=== PATIENT | male | born 1950 | race Caucasian/White ===

== ENCOUNTER 2022-09-27 23:44 | Inpatient (IN) | payer MEDICARE, BC, SELFPAY ==
--- NOTE | 2022-09-27 | ECG_ITS ---
Test Reason : hx of ventricular tachycardia, r/o qtc prolongatio Blood Pressure : / mmHG Vent. Rate : 076 BPM Atrial Rate : 076 BPM P-R Int : 192 ms QRS Dur : 116 ms QT Int : 442 ms P-R-T Axes : 018 -45 034 degrees QTc Int : 497 ms Normal sinus rhythm Left anterior fascicular block Prolonged QT Abnormal ECG No previous ECGs available Referred By: Liyah Cano Electronically Signed By:Jose Montilla
--- NOTE | ~2022-09-27 | MR_ITS ---
EXAMINATION: MR BRAIN WITHOUT CONTRAST CLINICAL INFORMATION: Rule out Wernicke's Korsakoff's. COMPARISON: None available. TECHNIQUE: Multiplanar, multisequence imaging of the brain was performed without intravenous contrast. FINDINGS: There is no acute infarction, mass, or hemorrhage. No extra-axial collection is seen.the ventricles, sulci, and basilar cisterns are normal in size and configuration. Mild to moderate degree of brain parenchymal volume loss is noted with commensurate prominence of the ventricles and sulci. Mild nonspecific foci of T2/FLAIR hyperintensity are seen within the cerebral white matter. There is no abnormal T2 signal involving the dorsomedial thalami, tectal plate, periaqueductal region, or around the third ventricle as would be typical imaging manifestations of Wernicke's encephalopathy. The flow voids of the major intracranial arteries appear intact. The bones and extracranial soft tissues are unremarkable. MR/MR head/brain wo con IMPRESSION: No acute infarct, mass lesion, intracranial hemorrhage, or evidence of hydrocephalus. No imaging findings of Wernicke's encephalopathy.
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
[2022-09-28] MEDS: Melatonin 3 MG TABLET 6 MG PO ×2 (01:06→20:10)
[2022-09-28] MEDS: LORazepam 0.5 MG TABLET PO ×4 (01:06→22:03)
--- NOTE | 2022-09-28 01:43 | PC.ADMIT ---
Admitted these 71 yrs. old male patient at 23:55h accompanied by ambulance staff and security w/ presenting problem of suicidal ideation with a plan to overdose on his medications.He was placed in the [facility] unit at [facility] but during his stay there he experienced some health related concerns and had to be moved to the medical floor on [place] 2. They were looking to have Rolando sent back to the [facility] unit to finish his treatment and adjust his meds. Upon admission, pt. is oriented to the unit, room, staff and room mate. Pt. is alert and oriented x3, forgetful and confused at times. Pt. signed the CV and other papers for release of information. Skin is good w/ a small old bruise to sung lower arms. No c/o SOB. Abdomen soft and non tender w/ + bowel sounds and no edema noted. Pt is pleasant on approached and cooperative w/ admission process. Pt. denies SI/HI/AVH/pain at this time.Pt. has long history of depression and Alcohol use and pt said he did not drink alcohol for 25 days. Pt. reports his past year. Pt has hx of Anxiety, Afib., HTN, Hypercholesterol. Liyah Cano notified w/ admission and made some admision orders. Pt is placed on !:1 at [facility] d/t constant pacing and flight risk according to the Nurse to Nurse report. Pt. given Ativan 0.5 mg and Melatonin 6 mg. for sleep and pt. is med compliant. We'll continue to monitor patient.
[2022-09-28] MEDS: traZODone HCL 25 MG HALFTAB PO ×2 (02:25→04:14)
[2022-09-28 02:38] VITALS: BMI 22.6
[2022-09-28 02:40] VITALS: BP 138/75; PULSE 83; RESP 18; TEMP 36.2; O2SAT 97
[2022-09-28] MEDS: hydrOXYzine HCL 25 MG TABLET PO (04:14)
[2022-09-28 07:00] VITALS: BMI 22.4
[2022-09-28 07:45] VITALS: BP 142/82; PULSE 112; RESP 20; O2SAT 98
[2022-09-28 08:00] LABS: MANUAL DIFF FLAG NO
[2022-09-28 08:08] LABS: Basophils Percent Auto 0.8 % (0-2); Eosinophils Absolute Auto 0.2 X10*3/uL (0.0-0.4); Eosinophils Percent Auto 3.2 % (0-4); Hematocrit 41.4 % (42.0-52.0); Hemoglobin 14.1 g/dl (14.0-18.0); Imm Gran Abs Auto 0.01 X10*3/uL (0.00-0.03); Imm Gran Pct Auto 0.2 % (0.0-0.4); Lymphocytes Absolute Auto 1.7 X10*3/uL (1.2-4.9); Lymphocytes Percent Auto 34.9 % (20-40); Mean Corpuscular HGB Conc 34.1 g/dl (31.0-36.0); Mean Corpuscular Hemoglobin 31.1 pg (27.0-33.0); Mean Corpuscular Volume 91.2 fL (80.0-98.0); Mean Platelet Volume 10.9 fL (9.4-12.4); Monocytes Absolute Auto 0.5 X10*3/uL (0.1-1.2); Monocytes Percent Auto 10.2 % (2-11); Neutrophils Absolute Auto 2.5 x10*3/uL (2.0-8.3); Neutrophils Percent Auto 50.7 % (45-73); Platelet Count 235 X10*3/uL (160-400); Red Blood Count 4.54 X10*6/uL (4.60-5.80); Red Cell Distribution Width 12.5 % (11.0-16.0)
[2022-09-28] MEDS: VerapamiL HCL SR 180 MG TABLET.ER 360 MG PO (08:17)
[2022-09-28] MEDS: Apixaban 5 MG TABLET PO ×2 (08:20→20:10)
[2022-09-28] MEDS: Metoprolol Succinate ER 25 MG TAB.ER.24H PO (08:20)
[2022-09-28] MEDS: Atorvastatin Calcium 40 MG TABLET PO (08:21)
[2022-09-28 08:30] LABS: Alanine Aminotransferase 25 U/L (0-40); Albumin Level 4.2 g/dL (3.5-5.0); Alkaline Phosphatase 28 U/L (39-117); Anion Gap 16 (12-20); Aspartate Amino Transferase 30 U/L (5-37); Blood Urea Nitrogen 15 mg/dL (9-16); Calcium 9.5 mg/dL (8.4-10.2); Carbon Dioxide 20 mmol/L (22-29); Chloride 113 mmol/L (96-108); Cholesterol 155 mg/dL; Estimated Glomerular Filt Rate 49; Glucose Fasting 97 mg/dL (60-99); HDL Cholesterol 41 mg/dL; Iron 67 mcg/dL (45-160); LDL Cholesterol Calculated 90 mg/dl; Percent Iron Saturation 16 % (15-50); Potassium 3.8 mmol/L (3.3-5.1); Sodium 145 mmol/L (135-145); Total Iron Binding Capacity 408 mcg/dL (228-428); Total Protein 6.4 g/dL (6.5-8.0); Triglycerides 121 mg/dL; Unsaturated Iron Binding 341 ug/dL
[2022-09-28 09:08] LABS: Estimated Average Glucose 100 mg/dL; Hemoglobin A1c % 5.1 %
[2022-09-28 09:32] LABS: Folate 11.7 ng/mL (> or = 4.0); Thyroid Stimulating Hormone 0.15 uIU/mL (0.32-4.0); Vitamin B12 474 pg/mL (200-900)
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
[2022-09-28 13:16] LABS: Free T4 (Free Thyroxine) 1.12 ng/dL (0.71-1.85)
[2022-09-28] MEDS: Acetaminophen 325 MG TABLET 650 MG PO ×2 (14:48→21:38)
[2022-09-28 19:35] VITALS: BP 140/62; PULSE 79; RESP 18; TEMP 36.2; O2SAT 98
[2022-09-29] MEDS: LORazepam 0.5 MG TABLET PO ×2 (06:39→22:12)
[2022-09-29] MEDS: Metoprolol Succinate ER 25 MG TAB.ER.24H PO (08:57)
[2022-09-29] MEDS: VerapamiL HCL SR 180 MG TABLET.ER 360 MG PO (08:57)
[2022-09-29] MEDS: Apixaban 5 MG TABLET PO ×2 (08:57→20:18)
[2022-09-29] MEDS: Atorvastatin Calcium 40 MG TABLET PO (08:57)
[2022-09-29 09:00] VITALS: BP 144/75; PULSE 97; RESP 18; TEMP 36.1; O2SAT 100
--- NOTE | 2022-09-29 15:48 | HO.PSYCHPN ---
Subjective Subjective Date of Service: 09/29/22 Reason For Visit: Major Depressive Disorder Recurrent Episode Subjective Notes: Conditional Voluntary Interim History: The nursing staff reported the patient has been confused at times mostly in the evening. The occupational therapy reported he has been cognitively impaired and he scored 8/30 on the [place]. Today we started multivitamins, vitamin B12 and folate and I ordered the MRI to look out for for alcohol-induced dementia. On interview the patient denies new symptoms he was displeased and initially he signed a 3 day notice in the morning but then later retracted. MRI wwith no Wernicke-Kosakoff Mental Status Exam Mental Status Exam Patient Appearance: Well Grooomed and Appropriate Patient Orientation: Person and Situation Level of Consciousness: Awake and Appropriate Patient Behavior: Passive Mood Description: Calm and Depressed Affect Description: Constricted Patient Cognition Impaired: Yes Ability to Follow Directions: Good Speech Pattern: Clear Hallucinations: None Delusions: Not Present Thought Process: Distracted and Evasive Thought Content: positive for [place] and positive for Circumstantial Judgement: Poor Diagnostics Vital Signs (24Hr): Vital Signs - 24 hr 09/28/22 19:35 09/29/22 09:00 Temperature 97.2 F 96.9 F Pulse Rate 79 97 Respiratory Rate 18 18 Blood Pressure 140/62 H 144/75 H Pulse Oximetry 98 100 Oxygen Delivery Method Room Air Room Air BMI result Body Mass Index 22.4 Labs 09/28/22 07:41 09/28/22 07:41 Labs: Laboratory Results - last 48 hr 09/28/22 09/28/22 09/28/22 07:41 07:41 07:41 WBC 5.0 RBC 4.54 L Hgb 14.1 Hct 41.4 L MCV 91.2 MCH 31.1 MCHC 34.1 RDW 12.5 Plt Count 235 MPV 10.9 Immature Gran % (Auto) 0.2 Neut % (Auto) 50.7 Lymph % (Auto) 34.9 Gregory % (Auto) 10.2 Eos % (Auto) 3.2 Baso % (Auto) 0.8 Lymph # (Auto) 1.7 Gregory # (Auto) 0.5 Eos # (Auto) 0.2 Baso # (Auto) 0.0 Abs Immat Gran (auto) 0.01 Absolute Neuts (auto) 2.5 Absolute Nucleated RBC 0.000 Nucleated RBC % (auto) 0.0 Sodium 145 Potassium 3.8 Chloride 113 H Carbon Dioxide 20 L Anion Gap 16 BUN 15 Creatinine 1.42 H Estim Creat Clear Calc 51.0 Estimated GFR 49 Fasting Glucose 97 Estimat Average Glucose 100 Hemoglobin A1c % 5.1 Calcium 9.5 Iron 67 TIBC 408 % Saturation 16 Unsat Iron Binding 341 Total Bilirubin 1.0 AST 30 ALT 25 Alkaline Phosphatase 28 L Total Protein 6.4 L Albumin 4.2 Triglycerides 121 Cholesterol 155 LDL Cholesterol, Calc 90 HDL Cholesterol 41 Vitamin B12 474 Folate 11.7 TSH 0.15 L Free T4 1.12 Imaging Radiology Impressions: ITS Impressions Brain MRI 09/29/22 13:00 IMPRESSION: No acute infarct, mass lesion, intracranial hemorrhage, or evidence of hydrocephalus. No imaging findings of Wernicke's encephalopathy. Medications Medications Current Medications Acetaminophen (Acetaminophen 325 Mg Tablet) 650 mg PO Q6H PRN PRN Reason: Headache/Pain Mild Scale (1-3) Last Admin: 09/28/22 21:38 Dose: 650 mg Al Hydroxide/Mg Hydroxide (Magnesium Hydrox/Alum Hydrox 30 Ml Oral.Susp) 30 ml PO Q6H PRN PRN Reason: Heartburn/Nausea Albuterol Sulfate (Albuterol Sulfate 90 Mcg 8 Gm Inhaler) 2 puff INHALE RQ4H PRN PRN Reason: wheeze Apixaban (Apixaban 5 Mg Tablet) 5 mg PO BID [facility] Last Admin: 09/29/22 08:57 Dose: 5 mg Atorvastatin Calcium (Atorvastatin Calcium 40 Mg Tablet) 40 mg PO DAILY [facility] Last Admin: 09/29/22 08:57 Dose: 40 mg Cyanocobalamin (Cyanocobalamin (Vitamin B-12) 100 Mcg Tablet) 100 mcg PO DAILY [facility] Docusate Sodium (Docusate Sodium 100 Mg Capsule) 100 mg PO BID PRN PRN Reason: Constipation Folic Acid (Folic Acid 1 Mg Tablet) 1 mg PO DAILY [facility] Hydroxyzine HCl (Hydroxyzine Hcl 25 Mg Tablet) 25 mg PO Q6H PRN PRN Reason: Anxiety Last Admin: 09/28/22 04:14 Dose: 25 mg Lorazepam (Lorazepam 0.5 Mg Tablet) 0.5 mg PO Q6H PRN PRN Reason: anxiety Magnesium Hydroxide (Milk Of Magnesia 30 Ml Oral.Susp) 30 ml PO DAILY PRN PRN Reason: Constipation Melatonin (Melatonin 3 Mg Tablet) 6 mg PO BEDTIME PRN PRN Reason: Insomnia Last Admin: 09/28/22 20:10 Dose: 6 mg Metoprolol Succinate (Metoprolol Succinate Er 25 Mg Tab.Er.24h) 25 mg PO DAILY [facility]; Protocol Last Admin: 09/29/22 08:57 Dose: 25 mg Mirtazapine (Mirtazapine 7.5 Mg Tablet) 7.5 mg PO BEDTIME [facility] Multivitamins/Vitamin C (Multivitamin Tablet) 1 tab PO BEDTIME [facility] Olanzapine (Olanzapine 5 Mg Tablet) 5 mg PO Q4H PRN PRN Reason: Psychosis Trazodone HCl (Trazodone Hcl 25 Mg Halftab) 25 mg PO BEDTIME MRX1 PRN PRN Reason: Insomnia Last Admin: 09/28/22 04:14 Dose: 25 mg Verapamil HCl (Verapamil Hcl Sr 180 Mg Tablet.Er) 360 mg PO DAILY [facility]; Protocol Last Admin: 09/29/22 08:57 Dose: 360 mg Allergies Allergies Allergy/AdvReac Type Severity Reaction Status Date / Time No Known Allergies Allergy Verified 09/27/22 22:37 Assessment & Plan Assessment & Plan (1) Major depressive disorder: Status: Acute Code(s): F32.9 - Major depressive disorder, single episode, unspecified (2) Alcohol use disorder: Status: Acute Code(s): F10.90 - Alcohol use, unspecified, uncomplicated Plan The patient is an elderly male with a prior history of increased misuse of alcohol for the last year after that that of his , admitted initially at another hospital for suicidal ideation with a plan to overdose of prescription medications. Currently, he presents with depressive symptoms with suicidal ideation but he is able to contract for safety in the facility. Plan 1. Gather collateral information. 2. 50 minute check. 3. Regular blood work. 4. Hospitalist consult for medical clearance. 5. Remeron 7.5 mg p.o. q.h.s. to target depression. 6. We will consider the use of naltrexone if he presents with cravings. 7. Family meeting to gather more information 8. Vitamin B12, folate and multivitamins today. 9. MRI within normal limits Reason for contiued inpatient stay Substantial Risk for: inability to function, rapid decompensation and med/psych decompensation Time Spent With Patient Time: Total time managing care of this patient today __20__ minutes.
[2022-09-29 18:00] VITALS: BP 141/66; PULSE 72; RESP 18; TEMP 36.2; O2SAT 98
[2022-09-29] MEDS: Multivitamin TABLET 1 TAB PO (20:18)
[2022-09-29] MEDS: Mirtazapine 7.5 MG TABLET PO (20:18)
[2022-09-29] MEDS: Melatonin 3 MG TABLET 6 MG PO (21:13)
[2022-09-29] MEDS: hydrOXYzine HCL 25 MG TABLET PO (21:13)
[2022-09-29] MEDS: traZODone HCL 25 MG HALFTAB PO ×2 (22:13→23:22)
[2022-09-30 06:28] LABS: MANUAL DIFF FLAG NO
[2022-09-30 06:33] LABS: Basophils Percent Auto 0.7 % (0-2); Eosinophils Absolute Auto 0.2 X10*3/uL (0.0-0.4); Hematocrit 38.5 % (42.0-52.0); Hemoglobin 12.9 g/dl (14.0-18.0); Imm Gran Abs Auto 0.02 X10*3/uL (0.00-0.03); Imm Gran Pct Auto 0.4 % (0.0-0.4); Lymphocytes Absolute Auto 1.3 X10*3/uL (1.2-4.9); Lymphocytes Percent Auto 27.9 % (20-40); Mean Corpuscular HGB Conc 33.5 g/dl (31.0-36.0); Mean Corpuscular Hemoglobin 30.2 pg (27.0-33.0); Mean Corpuscular Volume 90.2 fL (80.0-98.0); Mean Platelet Volume 10.9 fL (9.4-12.4); Monocytes Absolute Auto 0.5 X10*3/uL (0.1-1.2); Monocytes Percent Auto 9.9 % (2-11); Neutrophils Absolute Auto 2.6 x10*3/uL (2.0-8.3); Neutrophils Percent Auto 57.1 % (45-73); Platelet Count 204 X10*3/uL (160-400); Red Blood Count 4.27 X10*6/uL (4.60-5.80); Red Cell Distribution Width 12.4 % (11.0-16.0); White Blood Count 4.6 X10*3/uL (4.8-10.8)
[2022-09-30 06:44] LABS: Alanine Aminotransferase 22 U/L (0-40); Albumin Level 3.8 g/dL (3.5-5.0); Alkaline Phosphatase 29 U/L (39-117); Aspartate Amino Transferase 27 U/L (5-37); Bilirubin Direct 0.2 mg/dL (0.0-0.5); Bilirubin Total 0.8 mg/dL (0.0-1.0); Gamma Glutamyl Transpeptidase 38 U/L (11-51); Total Protein 5.8 g/dL (6.5-8.0)
[2022-09-30 08:45] VITALS: BP 136/99; PULSE 96; RESP 16; TEMP 36; O2SAT 96
[2022-09-30] MEDS: Folic Acid 1 MG TABLET PO (08:55)
[2022-09-30] MEDS: VerapamiL HCL SR 180 MG TABLET.ER 360 MG PO (08:55)
[2022-09-30] MEDS: Atorvastatin Calcium 40 MG TABLET PO (08:56)
[2022-09-30] MEDS: Apixaban 5 MG TABLET PO ×2 (08:56→20:22)
[2022-09-30] MEDS: Metoprolol Succinate ER 25 MG TAB.ER.24H PO (08:56)
[2022-09-30] MEDS: Cyanocobalamin (Vitamin B-12) 100 MCG TABLET PO (08:56)
--- NOTE | 2022-09-30 10:09 | HO.PSYCHPN ---
Subjective Subjective Date of Service: 09/30/22 Reason For Visit: Major Depressive Disorder Recurrent Episode Subjective Notes: Conditional Voluntary Interim History: The nursing staff reported the patient had been restless at night he received several PRNs and eventually he had Ativan p.r.n. at night. He slept only a few hours. On interview the patient denies new symptoms he looks anxious he was discharged as soon as possible Mental Status Exam Mental Status Exam Patient Appearance: Appropriate Patient Orientation: Person and Situation Level of Consciousness: Awake and Appropriate Patient Behavior: Guarded and Passive Mood Description: Calm Affect Description: Constricted Patient Cognition Impaired: Yes Ability to Follow Directions: Good Speech Pattern: Clear Hallucinations: None Delusions: Not Present Thought Process: Linear Thought Content: positive for [place] Judgement: Fair Diagnostics Vital Signs (24Hr): Vital Signs - 24 hr 09/29/22 18:00 Temperature 97.1 F Pulse Rate 72 Respiratory Rate 18 Blood Pressure 141/66 H Pulse Oximetry 98 Oxygen Delivery Method Room Air BMI result Body Mass Index 22.4 Labs 09/30/22 06:03 09/28/22 07:41 Labs: Laboratory Results - last 48 hr 09/28/22 09/30/22 09/30/22 07:41 06:03 06:03 WBC 4.6 L RBC 4.27 L Hgb 12.9 L Hct 38.5 L MCV 90.2 MCH 30.2 MCHC 33.5 RDW 12.4 Plt Count 204 MPV 10.9 Immature Gran % (Auto) 0.4 Neut % (Auto) 57.1 Lymph % (Auto) 27.9 Nicholas % (Auto) 9.9 Eos % (Auto) 4.0 Baso % (Auto) 0.7 Lymph # (Auto) 1.3 Nicholas # (Auto) 0.5 Eos # (Auto) 0.2 Baso # (Auto) 0.0 Abs Immat Gran (auto) 0.02 Absolute Neuts (auto) 2.6 Absolute Nucleated RBC 0.000 Nucleated RBC % (auto) 0.0 Total Bilirubin 0.8 Direct Bilirubin 0.2 GGT 38 AST 27 ALT 22 Alkaline Phosphatase 29 L Total Protein 5.8 L Albumin 3.8 Free T4 1.12 Imaging Radiology Impressions: ITS Impressions Brain MRI 09/29/22 13:00 IMPRESSION: No acute infarct, mass lesion, intracranial hemorrhage, or evidence of hydrocephalus. No imaging findings of Wernicke's encephalopathy. Medications Medications Current Medications Acetaminophen (Acetaminophen 325 Mg Tablet) 650 mg PO Q6H PRN PRN Reason: Headache/Pain Mild Scale (1-3) Last Admin: 09/28/22 21:38 Dose: 650 mg Al Hydroxide/Mg Hydroxide (Magnesium Hydrox/Alum Hydrox 30 Ml Oral.Susp) 30 ml PO Q6H PRN PRN Reason: Heartburn/Nausea Albuterol Sulfate (Albuterol Sulfate 90 Mcg 8 Gm Inhaler) 2 puff INHALE RQ4H PRN PRN Reason: wheeze Apixaban (Apixaban 5 Mg Tablet) 5 mg PO BID [facility] Last Admin: 09/30/22 08:56 Dose: 5 mg Atorvastatin Calcium (Atorvastatin Calcium 40 Mg Tablet) 40 mg PO DAILY [facility] Last Admin: 09/30/22 08:56 Dose: 40 mg Cyanocobalamin (Cyanocobalamin (Vitamin B-12) 100 Mcg Tablet) 100 mcg PO DAILY [facility] Last Admin: 09/30/22 08:56 Dose: 100 mcg Docusate Sodium (Docusate Sodium 100 Mg Capsule) 100 mg PO BID PRN PRN Reason: Constipation Folic Acid (Folic Acid 1 Mg Tablet) 1 mg PO DAILY [facility] Last Admin: 09/30/22 08:55 Dose: 1 mg Hydroxyzine HCl (Hydroxyzine Hcl 25 Mg Tablet) 25 mg PO Q6H PRN PRN Reason: Anxiety Last Admin: 09/29/22 21:13 Dose: 25 mg Lorazepam (Lorazepam 0.5 Mg Tablet) 0.5 mg PO Q6H PRN PRN Reason: anxiety Last Admin: 09/29/22 22:12 Dose: 0.5 mg Magnesium Hydroxide (Milk Of Magnesia 30 Ml Oral.Susp) 30 ml PO DAILY PRN PRN Reason: Constipation Melatonin (Melatonin 3 Mg Tablet) 6 mg PO BEDTIME PRN PRN Reason: Insomnia Last Admin: 09/29/22 21:13 Dose: 6 mg Metoprolol Succinate (Metoprolol Succinate Er 25 Mg Tab.Er.24h) 25 mg PO DAILY [facility]; Protocol Last Admin: 09/30/22 08:56 Dose: 25 mg Mirtazapine (Mirtazapine 7.5 Mg Tablet) 7.5 mg PO BEDTIME [facility] Last Admin: 09/29/22 20:18 Dose: 7.5 mg Multivitamins/Vitamin C (Multivitamin Tablet) 1 tab PO BEDTIME [facility] Last Admin: 09/29/22 20:18 Dose: 1 tab Olanzapine (Olanzapine 5 Mg Tablet) 5 mg PO Q4H PRN PRN Reason: Psychosis Trazodone HCl (Trazodone Hcl 25 Mg Halftab) 25 mg PO BEDTIME MRX1 PRN PRN Reason: Insomnia Last Admin: 09/29/22 23:22 Dose: 25 mg Verapamil HCl (Verapamil Hcl Sr 180 Mg Tablet.Er) 360 mg PO DAILY [facility]; Protocol Last Admin: 09/30/22 08:55 Dose: 360 mg Allergies Allergies Allergy/AdvReac Type Severity Reaction Status Date / Time No Known Allergies Allergy Verified 09/27/22 22:37 Assessment & Plan Assessment & Plan (1) Major depressive disorder: Status: Acute Code(s): F32.9 - Major depressive disorder, single episode, unspecified (2) Alcohol use disorder: Status: Acute Code(s): F10.90 - Alcohol use, unspecified, uncomplicated Plan The patient is an elderly male with a prior history of increased misuse of alcohol for the last year after that that of his , admitted initially at another hospital for suicidal ideation with a plan to overdose of prescription medications. Currently, he presents with depressive symptoms with suicidal ideation but he is able to contract for safety in the facility. Plan 1. Gather collateral information. 2. 50 minute check. 3. Regular blood work. 4. Hospitalist consult for medical clearance. 5. Remeron 7.5 mg p.o. q.h.s. to target depression. 6. We will consider the use of naltrexone if he presents with cravings. 7. Family meeting to gather more information 8. Vitamin B12, folate and multivitamins today. 9. MRI within normal limits Reason for contiued inpatient stay Substantial Risk for: inability to function, rapid decompensation and med/psych decompensation Time Spent With Patient Time: Total time managing care of this patient today __20__ minutes.
[2022-09-30 11:02] VITALS: BP 128/82; PULSE 92
[2022-09-30] MEDS: lisinopriL 20 MG TABLET PO (11:03)
[2022-09-30 18:48] VITALS: BP 147/67; PULSE 85; RESP 18; TEMP 36.4; O2SAT 99
[2022-09-30] MEDS: Mirtazapine 15 MG TABLET PO (20:23)
[2022-09-30] MEDS: Multivitamin TABLET 1 TAB PO (20:23)
[2022-09-30] MEDS: Acetaminophen 325 MG TABLET 650 MG PO (20:43)
[2022-10-01] MEDS: hydrOXYzine HCL 25 MG TABLET PO ×2 (01:33→23:18)
[2022-10-01] MEDS: traZODone HCL 25 MG HALFTAB PO ×2 (01:33→22:10)
[2022-10-01] MEDS: Melatonin 3 MG TABLET 6 MG PO ×2 (01:33→21:12)
[2022-10-01 09:00] VITALS: BP 124/67; PULSE 93; RESP 16; TEMP 36.6; O2SAT 98
[2022-10-01] MEDS: lisinopriL 20 MG TABLET PO (09:02)
[2022-10-01] MEDS: Folic Acid 1 MG TABLET PO (09:02)
[2022-10-01] MEDS: Atorvastatin Calcium 40 MG TABLET PO (09:02)
[2022-10-01] MEDS: Metoprolol Succinate ER 25 MG TAB.ER.24H PO (09:03)
[2022-10-01] MEDS: Apixaban 5 MG TABLET PO ×2 (09:03→20:14)
[2022-10-01] MEDS: VerapamiL HCL SR 180 MG TABLET.ER 360 MG PO (09:03)
[2022-10-01] MEDS: Cyanocobalamin (Vitamin B-12) 100 MCG TABLET PO (09:03)
[2022-10-01] MEDS: Fenofibrate 160 MG TABLET PO (10:32)
--- NOTE | 2022-10-01 12:09 | P.PNPSI_ITS ---
Subjective Subjective Date of Service: 10/01/22 Reason For Visit: Major Depressive Disorder Recurrent Episode Subjective Notes: Conditional Voluntary Interim History: The nursing staff reported the patient had a poor night sleep he needed PRNs and admit 9 he slept only for a few hours. The patient remains confused at times. On interview the patient reports that he has poor sleep and he agreed to medication changes for sleep. Mental Status Exam Mental Status Exam Patient Appearance: Well Grooomed and Appropriate Patient Orientation: Person and Situation Level of Consciousness: Awake and Appropriate Patient Behavior: Guarded and Passive Mood Description: Withdrawn Affect Description: Constricted Patient Cognition Impaired: Yes Ability to Follow Directions: Good Speech Pattern: Clear Hallucinations: None Delusions: Not Present Thought Process: Distracted Thought Content: positive for [place] Judgement: Fair Diagnostics Vital Signs (24Hr): Vital Signs - 24 hr 09/30/22 18:48 10/01/22 09:00 Temperature 97.6 F 97.8 F Pulse Rate 85 93 Respiratory Rate 18 16 Blood Pressure 147/67 H 124/67 Pulse Oximetry 99 98 Oxygen Delivery Method Room Air Room Air BMI result Body Mass Index 22.4 Labs 09/30/22 06:03 09/28/22 07:41 Labs: Laboratory Results - last 48 hr 09/30/22 09/30/22 06:03 06:03 WBC 4.6 L RBC 4.27 L Hgb 12.9 L Hct 38.5 L MCV 90.2 MCH 30.2 MCHC 33.5 RDW 12.4 Plt Count 204 MPV 10.9 Immature Gran % (Auto) 0.4 Neut % (Auto) 57.1 Lymph % (Auto) 27.9 [place] % (Auto) 9.9 Eos % (Auto) 4.0 Baso % (Auto) 0.7 Lymph # (Auto) 1.3 [place] # (Auto) 0.5 Eos # (Auto) 0.2 Baso # (Auto) 0.0 Abs Immat Gran (auto) 0.02 Absolute Neuts (auto) 2.6 Absolute Nucleated RBC 0.000 Nucleated RBC % (auto) 0.0 Total Bilirubin 0.8 Direct Bilirubin 0.2 GGT 38 AST 27 ALT 22 Alkaline Phosphatase 29 L Total Protein 5.8 L Albumin 3.8 Imaging Radiology Impressions: ITS Impressions Brain MRI 09/29/22 13:00 IMPRESSION: No acute infarct, mass lesion, intracranial hemorrhage, or evidence of hydrocephalus. No imaging findings of Wernicke's encephalopathy. Medications Medications Current Medications Acetaminophen (Acetaminophen 325 Mg Tablet) 650 mg PO Q6H PRN PRN Reason: Headache/Pain Mild Scale (1-3) Last Admin: 09/30/22 20:43 Dose: 650 mg Al Hydroxide/Mg Hydroxide (Magnesium Hydrox/Alum Hydrox 30 Ml Oral.Susp) 30 ml PO Q6H PRN PRN Reason: Heartburn/Nausea Albuterol Sulfate (Albuterol Sulfate 90 Mcg 8 Gm Inhaler) 2 puff INHALE RQ4H PRN PRN Reason: wheeze Apixaban (Apixaban 5 Mg Tablet) 5 mg PO BID [facility] Last Admin: 10/01/22 09:03 Dose: 5 mg Atorvastatin Calcium (Atorvastatin Calcium 40 Mg Tablet) 40 mg PO DAILY [facility] Last Admin: 10/01/22 09:02 Dose: 40 mg Cyanocobalamin (Cyanocobalamin (Vitamin B-12) 100 Mcg Tablet) 100 mcg PO DAILY [facility] Last Admin: 10/01/22 09:03 Dose: 100 mcg Docusate Sodium (Docusate Sodium 100 Mg Capsule) 100 mg PO BID PRN PRN Reason: Constipation Fenofibrate (Fenofibrate 160 Mg Tablet) 160 mg PO DAILY [facility] Last Admin: 10/01/22 10:32 Dose: 160 mg Folic Acid (Folic Acid 1 Mg Tablet) 1 mg PO DAILY [facility] Last Admin: 10/01/22 09:02 Dose: 1 mg Hydroxyzine HCl (Hydroxyzine Hcl 25 Mg Tablet) 25 mg PO Q6H PRN PRN Reason: Anxiety Last Admin: 10/01/22 01:33 Dose: 25 mg Lisinopril (Lisinopril 20 Mg Tablet) 20 mg PO DAILY [facility]; Protocol Last Admin: 10/01/22 09:02 Dose: 20 mg Lorazepam (Lorazepam 0.5 Mg Tablet) 0.5 mg PO Q6H PRN PRN Reason: anxiety Last Admin: 09/29/22 22:12 Dose: 0.5 mg Magnesium Hydroxide (Milk Of Magnesia 30 Ml Oral.Susp) 30 ml PO DAILY PRN PRN Reason: Constipation Melatonin (Melatonin 3 Mg Tablet) 6 mg PO BEDTIME PRN PRN Reason: Insomnia Last Admin: 10/01/22 01:33 Dose: 6 mg Metoprolol Succinate (Metoprolol Succinate Er 25 Mg Tab.Er.24h) 25 mg PO DAILY [facility]; Protocol Last Admin: 10/01/22 09:03 Dose: 25 mg Mirtazapine (Mirtazapine 15 Mg Tablet) 15 mg PO BEDTIME [facility] Last Admin: 09/30/22 20:23 Dose: 15 mg Multivitamins/Vitamin C (Multivitamin Tablet) 1 tab PO BEDTIME [facility] Last Admin: 09/30/22 20:23 Dose: 1 tab Non-Formulary Medication (Cholecalciferol (Vitamin D3)) 50,000 units PO Tony [facility] Olanzapine (Olanzapine 5 Mg Tablet) 5 mg PO Q4H PRN PRN Reason: Psychosis Trazodone HCl (Trazodone Hcl 25 Mg Halftab) 25 mg PO BEDTIME MRX1 PRN PRN Reason: Insomnia Last Admin: 10/01/22 01:33 Dose: 25 mg Verapamil HCl (Verapamil Hcl Sr 180 Mg Tablet.Er) 360 mg PO DAILY [facility]; Protocol Last Admin: 10/01/22 09:03 Dose: 360 mg Allergies Allergies Allergy/AdvReac Type Severity Reaction Status Date / Time No Known Allergies Allergy Verified 09/27/22 22:37 Assessment & Plan Assessment & Plan (1) Major depressive disorder: Status: Acute Code(s): F32.9 - Major depressive disorder, single episode, unspecified (2) Alcohol use disorder: Status: Acute Code(s): F10.90 - Alcohol use, unspecified, uncomplicated Plan The patient is an elderly male with a prior history of increased misu se of alcohol for the last year after that that of his , admitted initially at another hospital for suicidal ideation with a plan to overdose of prescription medications. Currently, he presents with depressive symptoms with suicidal ideation but he is able to contract for safety in the facility. Plan 1. Gather collateral information. 2. 50 minute check. 3. Regular blood work. 4. Hospitalist consult for medical clearance. 5. Remeron 7.5 mg p.o. q.h.s. to target depression. 6. We will consider the use of naltrexone if he presents with cravings. 7. Family meeting to gather more information 8. Vitamin B12, folate and multivitamins today. 9. MRI within normal limits Reason for contiued inpatient stay Substantial Risk for: inability to function, rapid decompensation and med/psych decompensation Time Spent With Patient Time: Total time managing care of this patient today __20__ minutes.
[2022-10-01] MEDS: Acetaminophen 325 MG TABLET 650 MG PO ×2 (14:45→23:17)
[2022-10-01 18:56] VITALS: BP 150/78; PULSE 74; RESP 16; TEMP 36.3; O2SAT 100
[2022-10-01] MEDS: Multivitamin TABLET 1 TAB PO (20:14)
[2022-10-01] MEDS: Mirtazapine 30 MG TABLET PO (20:15)
[2022-10-01] MEDS: LORazepam 0.5 MG TABLET PO (21:12)
[2022-10-01] MEDS: traZODone HCL 100 MG TABLET PO (21:12)
[2022-10-01] MEDS: OLANZapine 5 MG TABLET PO (22:10)
[2022-10-02 06:00] VITALS: BP 122/81; PULSE 102; RESP 20; TEMP 36.2; O2SAT 99
[2022-10-02] MEDS: Fenofibrate 160 MG TABLET PO (08:30)
[2022-10-02] MEDS: Folic Acid 1 MG TABLET PO (08:30)
[2022-10-02] MEDS: VerapamiL HCL SR 180 MG TABLET.ER 360 MG PO (08:30)
[2022-10-02] MEDS: Cyanocobalamin (Vitamin B-12) 100 MCG TABLET PO (08:31)
[2022-10-02] MEDS: Atorvastatin Calcium 40 MG TABLET PO (08:31)
[2022-10-02] MEDS: lisinopriL 20 MG TABLET PO (08:31)
[2022-10-02] MEDS: Metoprolol Succinate ER 25 MG TAB.ER.24H PO (08:31)
[2022-10-02] MEDS: Apixaban 5 MG TABLET PO ×2 (08:31→20:33)
--- NOTE | 2022-10-02 11:50 | PC.NURSE ---
Pt. with good balance and steady gait. Does not use assistive devices.Bed alarm not indicated.
--- NOTE | 2022-10-02 15:03 | P.PNPSI_ITS ---
Subjective Subjective Date of Service: 10/02/22 Reason For Visit: Major Depressive Disorder Recurrent Episode Subjective Notes: Conditional Voluntary Interim History: Pt reports he met with his son today. Pt was somewhat tearful and remorseful about effects of his ongoing alcohol use on his family, especially his autistic son. Pt denies SI/HI. He reports sleep is broken and not restful but better with current medications. No VH/AH. We discussed starting naltrexon for alcohol cravings. Pt in agreement to start this medication. Per nursing, pt slept through the night. Pt visible on the unit, social with select peers. No behavioral concerns. VS stable, no signs of alcohol or benzo withdrawal. Medication Compliance: Yes Side effects from medications: No Mental Status Exam Mental Status Exam Narrative: Appearance:casually groomed, good hygiene, in NAD Behavior:cooperative Psychomotor: no agitation or retardation noted Speech: clear, normal rate/rhythm/volume, spontaneous TP: linear TC: no signs of psychosis, future oriented, remorseful s/s to alcohol use and effects on alcohol Mood: Better Affect: congruent, brightens at times VH/AH: none Delusions: none Insight/judgment: fair x 2. Memory/cog: alert, oriented x 3. pending MOCA results. Diagnostics Vital Signs (24Hr): Vital Signs - 24 hr 10/01/22 18:56 10/02/22 06:00 Temperature 97.4 F 97.2 F Pulse Rate 74 102 H Respiratory Rate 16 20 Blood Pressure 150/78 H 122/81 Pulse Oximetry 100 99 Oxygen Delivery Method Room Air Room Air BMI result Body Mass Index 22.4 Labs 09/30/22 06:03 09/28/22 07:41 Imaging Radiology Impressions: ITS Impressions Brain MRI 09/29/22 13:00 IMPRESSION: No acute infarct, mass lesion, intracranial hemorrhage, or evidence of hydrocephalus. No imaging findings of Wernicke's encephalopathy. Medications Medications Current Medications Acetaminophen (Acetaminophen 325 Mg Tablet) 650 mg PO Q6H PRN PRN Reason: Headache/Pain Mild Scale (1-3) Last Admin: 10/01/22 23:17 Dose: 650 mg Al Hydroxide/Mg Hydroxide (Magnesium Hydrox/Alum Hydrox 30 Ml Oral.Susp) 30 ml PO Q6H PRN PRN Reason: Heartburn/Nausea Albuterol Sulfate (Albuterol Sulfate 90 Mcg 8 Gm Inhaler) 2 puff INHALE RQ4H PRN PRN Reason: wheeze Apixaban (Apixaban 5 Mg Tablet) 5 mg PO BID [facility] Last Admin: 10/02/22 08:31 Dose: 5 mg Atorvastatin Calcium (Atorvastatin Calcium 40 Mg Tablet) 40 mg PO DAILY [facility] Last Admin: 10/02/22 08:31 Dose: 40 mg Cyanocobalamin (Cyanocobalamin (Vitamin B-12) 100 Mcg Tablet) 100 mcg PO DAILY [facility] Last Admin: 10/02/22 08:31 Dose: 100 mcg Docusate Sodium (Docusate Sodium 100 Mg Capsule) 100 mg PO BID PRN PRN Reason: Constipation Fenofibrate (Fenofibrate 160 Mg Tablet) 160 mg PO DAILY [facility] Last Admin: 10/02/22 08:30 Dose: 160 mg Folic Acid (Folic Acid 1 Mg Tablet) 1 mg PO DAILY [facility] Last Admin: 10/02/22 08:30 Dose: 1 mg Hydroxyzine HCl (Hydroxyzine Hcl 25 Mg Tablet) 25 mg PO Q6H PRN PRN Reason: Anxiety Last Admin: 10/01/22 23:18 Dose: 25 mg Lisinopril (Lisinopril 20 Mg Tablet) 20 mg PO DAILY [facility]; Protocol Last Admin: 10/02/22 08:31 Dose: 20 mg Lorazepam (Lorazepam 0.5 Mg Tablet) 0.5 mg PO Q6H PRN PRN Reason: anxiety Last Admin: 10/01/22 21:12 Dose: 0.5 mg Magnesium Hydroxide (Milk Of Magnesia 30 Ml Oral.Susp) 30 ml PO DAILY PRN PRN Reason: Constipation Melatonin (Melatonin 3 Mg Tablet) 6 mg PO BEDTIME [facility] Last Admin: 10/01/22 21:12 Dose: 6 mg Metoprolol Succinate (Metoprolol Succinate Er 25 Mg Tab.Er.24h) 25 mg PO DAILY [facility]; Protocol Last Admin: 10/02/22 08:31 Dose: 25 mg Mirtazapine (Mirtazapine 30 Mg Tablet) 30 mg PO BEDTIME [facility] Last Admin: 10/01/22 20:15 Dose: 30 mg Multivitamins/Vitamin C (Multivitamin Tablet) 1 tab PO BEDTIME [facility] Last Admin: 10/01/22 20:14 Dose: 1 tab Non-Formulary Medication (Cholecalciferol (Vitamin D3)) 50,000 units PO Tony [facility] Olanzapine (Olanzapine 5 Mg Tablet) 5 mg PO Q4H PRN PRN Reason: Psychosis Last Admin: 10/01/22 22:10 Dose: 5 mg Trazodone HCl (Trazodone Hcl 100 Mg Tablet) 100 mg PO BEDTIME [facility] Last Admin: 10/01/22 21:12 Dose: 100 mg Trazodone HCl (Trazodone Hcl 25 Mg Halftab) 25 mg PO BEDTIME PRN PRN Reason: Insomnia Verapamil HCl (Verapamil Hcl Sr 180 Mg Tablet.Er) 360 mg PO DAILY [facility]; Protocol Last Admin: 10/02/22 08:30 Dose: 360 mg Allergies Allergies Allergy/AdvReac Type Severity Reaction Status Date / Time No Known Allergies Allergy Verified 09/27/22 22:37 Assessment & Plan Assessment & Plan (1) Major depressive disorder: Status: Acute Code(s): F32.9 - Major depressive disorder, single episode, unspecified (2) Alcohol use disorder: Status: Acute Code(s): F10.90 - Alcohol use, unspecified, uncomplicated Plan The patient is an elderly male with a prior history of increased misuse of alcohol for the last year after that that of his , admitted initially at another hospital for suicidal ideation with a plan to overdose of prescription medications. Currently, he presents with depressive symptoms with suicidal ideation but he is able to contract for safety in the facility. Plan 1. Gather collateral information. 2. 50 minute check. 3. Regular blood work. 4. Hospitalist consult for medical clearance. 5. Remeron 7.5 mg p.o. q.h.s. to target depression. 6. We will consider the use of naltrexone if he presents with cravings. 7. Family meeting to gather more information 8. Vitamin B12, folate and multivitamins today. 9. MRI within normal limits 10/02 continue tx. started naltrexon 50mg po daily. Reason for contiued inpatient stay Substantial Risk for: harm to self Time Spent With Patient Time: Total time managing care of this patient today ____ minutes.
[2022-10-02] MEDS: Naltrexone HCl 50 MG TABLET PO (15:52)
[2022-10-02 18:00] VITALS: BP 167/72; PULSE 80; RESP 17; TEMP 36.5; O2SAT 99
[2022-10-02] MEDS: Multivitamin TABLET 1 TAB PO (20:33)
[2022-10-02] MEDS: traZODone HCL 100 MG TABLET PO (20:33)
[2022-10-02] MEDS: Melatonin 3 MG TABLET 6 MG PO (20:33)
[2022-10-02] MEDS: Mirtazapine 30 MG TABLET PO (20:33)
[2022-10-03 08:00] VITALS: BP 135/75; PULSE 102; RESP 18; TEMP 36.9; O2SAT 99
[2022-10-03] MEDS: Folic Acid 1 MG TABLET PO (08:17)
[2022-10-03] MEDS: Cyanocobalamin (Vitamin B-12) 100 MCG TABLET PO (08:17)
[2022-10-03] MEDS: Apixaban 5 MG TABLET PO ×2 (08:17→20:43)
[2022-10-03] MEDS: Fenofibrate 160 MG TABLET PO (08:17)
[2022-10-03] MEDS: Atorvastatin Calcium 40 MG TABLET PO (08:17)
[2022-10-03] MEDS: VerapamiL HCL SR 180 MG TABLET.ER 360 MG PO (08:18)
[2022-10-03] MEDS: lisinopriL 20 MG TABLET PO (08:18)
[2022-10-03] MEDS: Naltrexone HCl 50 MG TABLET PO (08:18)
[2022-10-03] MEDS: Metoprolol Succinate ER 25 MG TAB.ER.24H PO (08:18)
--- NOTE | 2022-10-03 15:54 | P.PNPSI_ITS ---
Subjective Subjective Date of Service: 10/03/22 Reason For Visit: Major Depressive Disorder Recurrent Episode Subjective Notes: Conditional Voluntary Interim History: The nursing staff reported the patient has been clearer than yesterday alert and oriented x3. Apparently he was going through benzodiazepine withdrawal. He was started on naltrexone and he wants to go home. The son who is a police aide wants him to go to rehab at [facility]. We discussed the case today and occupational therapist will try to repeat the [place] test as soon as possible. On interview the patient denies new symptoms, better sleep last night. Mental Status Exam Mental Status Exam Patient Appearance: Well Grooomed and Appropriate Patient Orientation: Person and Situation Level of Consciousness: Awake and Appropriate Patient Behavior: Guarded and Passive Mood Description: Withdrawn Affect Description: Constricted Patient Cognition Impaired: Yes Ability to Follow Directions: Good Speech Pattern: Clear Hallucinations: None Delusions: Not Present Thought Process: Distracted Thought Content: positive for [place] and positive for Circumstantial Judgement: Fair Diagnostics Vital Signs (24Hr): Vital Signs - 24 hr 10/02/22 18:00 10/03/22 08:00 Temperature 97.7 F 98.5 F Pulse Rate 80 102 H Respiratory Rate 17 18 Blood Pressure 167/72 H 135/75 Pulse Oximetry 99 99 Oxygen Delivery Method Room Air Room Air BMI result Body Mass Index 22.4 Labs 09/30/22 06:03 09/28/22 07:41 Imaging Radiology Impressions: ITS Impressions Brain MRI 09/29/22 13:00 IMPRESSION: No acute infarct, mass lesion, intracranial hemorrhage, or evidence of hydrocephalus. No imaging findings of Wernicke's encephalopathy. Medications Medications Current Medications Acetaminophen (Acetaminophen 325 Mg Tablet) 650 mg PO Q6H PRN PRN Reason: Headache/Pain Mild Scale (1-3) Last Admin: 10/01/22 23:17 Dose: 650 mg Al Hydroxide/Mg Hydroxide (Magnesium Hydrox/Alum Hydrox 30 Ml Oral.Susp) 30 ml PO Q6H PRN PRN Reason: Heartburn/Nausea Albuterol Sulfate (Albuterol Sulfate 90 Mcg 8 Gm Inhaler) 2 puff INHALE RQ4H PRN PRN Reason: wheeze Apixaban (Apixaban 5 Mg Tablet) 5 mg PO BID [facility] Last Admin: 10/03/22 08:17 Dose: 5 mg Atorvastatin Calcium (Atorvastatin Calcium 40 Mg Tablet) 40 mg PO DAILY [facility] Last Admin: 10/03/22 08:17 Dose: 40 mg Cyanocobalamin (Cyanocobalamin (Vitamin B-12) 100 Mcg Tablet) 100 mcg PO DAILY [facility] Last Admin: 10/03/22 08:17 Dose: 100 mcg Docusate Sodium (Docusate Sodium 100 Mg Capsule) 100 mg PO BID PRN PRN Reason: Constipation Fenofibrate (Fenofibrate 160 Mg Tablet) 160 mg PO DAILY [facility] Last Admin: 10/03/22 08:17 Dose: 160 mg Folic Acid (Folic Acid 1 Mg Tablet) 1 mg PO DAILY [facility] Last Admin: 10/03/22 08:17 Dose: 1 mg Hydroxyzine HCl (Hydroxyzine Hcl 25 Mg Tablet) 25 mg PO Q6H PRN PRN Reason: Anxiety Last Admin: 10/01/22 23:18 Dose: 25 mg Lisinopril (Lisinopril 20 Mg Tablet) 20 mg PO DAILY [facility]; Protocol Last Admin: 10/03/22 08:18 Dose: 20 mg Lorazepam (Lorazepam 0.5 Mg Tablet) 0.5 mg PO Q6H PRN PRN Reason: anxiety Last Admin: 10/01/22 21:12 Dose: 0.5 mg Magnesium Hydroxide (Milk Of Magnesia 30 Ml Oral.Susp) 30 ml PO DAILY PRN PRN Reason: Constipation Melatonin (Melatonin 3 Mg Tablet) 6 mg PO BEDTIME [facility] Last Admin: 10/02/22 20:33 Dose: 6 mg Metoprolol Succinate (Metoprolol Succinate Er 25 Mg Tab.Er.24h) 25 mg PO DAILY [facility]; Protocol Last Admin: 10/03/22 08:18 Dose: 25 mg Mirtazapine (Mirtazapine 30 Mg Tablet) 30 mg PO BEDTIME [facility] Last Admin: 10/02/22 20:33 Dose: 30 mg Multivitamins/Vitamin C (Multivitamin Tablet) 1 tab PO BEDTIME [facility] Last Admin: 10/02/22 20:33 Dose: 1 tab Naltrexone HCl (Naltrexone Hcl 50 Mg Tablet) 50 mg PO DAILY [facility] Last Admin: 10/03/22 08:18 Dose: 50 mg Non-Formulary Medication (Cholecalciferol (Vitamin D3)) 50,000 units PO Tony [facility] Olanzapine (Olanzapine 5 Mg Tablet) 5 mg PO Q4H PRN PRN Reason: Psychosis Last Admin: 10/01/22 22:10 Dose: 5 mg Trazodone HCl (Trazodone Hcl 100 Mg Tablet) 100 mg PO BEDTIME [facility] Last Admin: 10/02/22 20:33 Dose: 100 mg Trazodone HCl (Trazodone Hcl 25 Mg Halftab) 25 mg PO BEDTIME PRN PRN Reason: Insomnia Verapamil HCl (Verapamil Hcl Sr 180 Mg Tablet.Er) 360 mg PO DAILY [facility]; Protocol Last Admin: 10/03/22 08:18 Dose: 360 mg Allergies Allergies Allergy/AdvReac Type Severity Reaction Status Date / Time No Known Allergies Allergy Verified 09/27/22 22:37 Assessment & Plan Assessment & Plan (1) Major depressive disorder: Status: Acute Code(s): F32.9 - Major depressive disorder, single episode, unspecified (2) Alcohol use disorder: Status: Acute Code(s): F10.90 - Alcohol use, unspecified, uncomplicated Plan The patient is an elderly male with a prior history of increased misuse of alcohol for the last year after that that of his , admitted initially at another hospital for suicidal ideation with a plan to overdose of prescription medications. Currently, he presents with depressive symptoms with suicidal ideation but he is able to contract for safety in the facility. Plan 1. Gather collateral information. 2. 50 minute check. 3. Regular blood work. 4. Hospitalist consult for medical clearance. 5. Remeron 7.5 mg p.o. q.h.s. to target depression. 6. We will consider the use of naltrexone if he presents with cravings. 7. Family meeting to gather more information 8. Vitamin B12, folate and multivitamins today. 9. MRI within normal limits 10. Naltrexone 50 mg p.o. daily Reason for contiued inpatient stay Substantial Risk for: inability to function, rapid decompensation and med/psych decompensation Time Spent With Patient Time: Total time managing care of this patient today __20__ minutes.
[2022-10-03] MEDS: Acetaminophen 325 MG TABLET 650 MG PO (15:56)
[2022-10-03 18:00] VITALS: BP 134/72; PULSE 69; RESP 18; TEMP 36.8; O2SAT 98
[2022-10-03] MEDS: Melatonin 3 MG TABLET 6 MG PO (20:43)
[2022-10-03] MEDS: Mirtazapine 30 MG TABLET PO (20:44)
[2022-10-03] MEDS: Multivitamin TABLET 1 TAB PO (20:44)
[2022-10-03] MEDS: traZODone HCL 100 MG TABLET PO (20:44)
[2022-10-03] MEDS: traZODone HCL 25 MG HALFTAB PO (22:14)
[2022-10-03] MEDS: hydrOXYzine HCL 25 MG TABLET PO (22:14)
[2022-10-04] MEDS: LORazepam 0.5 MG TABLET PO ×2 (03:18→20:50)
[2022-10-04 08:00] VITALS: BP 136/66; PULSE 106; RESP 17; TEMP 36.2; O2SAT 100
[2022-10-04] MEDS: Naltrexone HCl 50 MG TABLET PO (08:15)
[2022-10-04] MEDS: VerapamiL HCL SR 180 MG TABLET.ER 360 MG PO (08:15)
[2022-10-04] MEDS: Apixaban 5 MG TABLET PO ×2 (08:15→20:50)
[2022-10-04] MEDS: Fenofibrate 160 MG TABLET PO (08:15)
[2022-10-04] MEDS: Atorvastatin Calcium 40 MG TABLET PO (08:15)
[2022-10-04] MEDS: Folic Acid 1 MG TABLET PO (08:15)
[2022-10-04] MEDS: Cyanocobalamin (Vitamin B-12) 100 MCG TABLET PO (08:16)
[2022-10-04] MEDS: Metoprolol Succinate ER 25 MG TAB.ER.24H PO (08:16)
[2022-10-04] MEDS: lisinopriL 20 MG TABLET PO (08:16)
--- NOTE | 2022-10-04 12:07 | P.PNPSI_ITS ---
Subjective Subjective Date of Service: 10/04/22 Reason For Visit: Major Depressive Disorder Recurrent Episode Subjective Notes: Conditional Voluntary Interim History: The nursing staff reported the patient had been compliant with treatment. He had been pleasant. The social sciences professor reported his son wants to be outpatient at [facility], we will try to apply for an IOP and start scheduling appointments for discharge planning. On interview the patient denies new symptoms he feels okay, he adamantly denies suicidal ideation Mental Status Exam Mental Status Exam Patient Appearance: Well Grooomed and Appropriate Patient Orientation: Person and Situation Level of Consciousness: Awake and Appropriate Patient Behavior: Guarded and Passive Mood Description: Withdrawn Affect Description: Constricted Patient Cognition Impaired: Yes Ability to Follow Directions: Good Speech Pattern: Clear Hallucinations: None Delusions: Not Present Thought Process: Distracted and Evasive Thought Content: positive for [place] and positive for Circumstantial Judgement: Fair Diagnostics Vital Signs (24Hr): Vital Signs - 24 hr 10/03/22 18:00 10/04/22 08:00 Temperature 98.2 F 97.2 F Pulse Rate 69 106 H Respiratory Rate 18 17 Blood Pressure 134/72 136/66 Pulse Oximetry 98 100 Oxygen Delivery Method Room Air Room Air BMI result Body Mass Index 22.4 Labs 09/30/22 06:03 09/28/22 07:41 Imaging Radiology Impressions: ITS Impressions Brain MRI 09/29/22 13:00 IMPRESSION: No acute infarct, mass lesion, intracranial hemorrhage, or evidence of hydrocephalus. No imaging findings of Wernicke's encephalopathy. Medications Medications Current Medications Acetaminophen (Acetaminophen 325 Mg Tablet) 650 mg PO Q6H PRN PRN Reason: Headache/Pain Mild Scale (1-3) Last Admin: 10/03/22 15:56 Dose: 650 mg Al Hydroxide/Mg Hydroxide (Magnesium Hydrox/Alum Hydrox 30 Ml Oral.Susp) 30 ml PO Q6H PRN PRN Reason: Heartburn/Nausea Albuterol Sulfate (Albuterol Sulfate 90 Mcg 8 Gm Inhaler) 2 puff INHALE RQ4H PRN PRN Reason: wheeze Apixaban (Apixaban 5 Mg Tablet) 5 mg PO BID [facility] Last Admin: 10/04/22 08:15 Dose: 5 mg Atorvastatin Calcium (Atorvastatin Calcium 40 Mg Tablet) 40 mg PO DAILY [facility] Last Admin: 10/04/22 08:15 Dose: 40 mg Cyanocobalamin (Cyanocobalamin (Vitamin B-12) 100 Mcg Tablet) 100 mcg PO DAILY [facility] Last Admin: 10/04/22 08:16 Dose: 100 mcg Docusate Sodium (Docusate Sodium 100 Mg Capsule) 100 mg PO BID PRN PRN Reason: Constipation Fenofibrate (Fenofibrate 160 Mg Tablet) 160 mg PO DAILY [facility] Last Admin: 10/04/22 08:15 Dose: 160 mg Folic Acid (Folic Acid 1 Mg Tablet) 1 mg PO DAILY [facility] Last Admin: 10/04/22 08:15 Dose: 1 mg Hydroxyzine HCl (Hydroxyzine Hcl 25 Mg Tablet) 25 mg PO Q6H PRN PRN Reason: Anxiety Last Admin: 10/03/22 22:14 Dose: 25 mg Lisinopril (Lisinopril 20 Mg Tablet) 20 mg PO DAILY [facility]; Protocol Last Admin: 10/04/22 08:16 Dose: 20 mg Lorazepam (Lorazepam 0.5 Mg Tablet) 0.5 mg PO Q6H PRN PRN Reason: anxiety Last Admin: 10/04/22 03:18 Dose: 0.5 mg Magnesium Hydroxide (Milk Of Magnesia 30 Ml Oral.Susp) 30 ml PO DAILY PRN PRN Reason: Constipation Melatonin (Melatonin 3 Mg Tablet) 6 mg PO BEDTIME [facility] Last Admin: 10/03/22 20:43 Dose: 6 mg Metoprolol Succinate (Metoprolol Succinate Er 25 Mg Tab.Er.24h) 25 mg PO DAILY [facility]; Protocol Last Admin: 10/04/22 08:16 Dose: 25 mg Mirtazapine (Mirtazapine 30 Mg Tablet) 30 mg PO BEDTIME [facility] Last Admin: 10/03/22 20:44 Dose: 30 mg Multivitamins/Vitamin C (Multivitamin Tablet) 1 tab PO BEDTIME [facility] Last Admin: 10/03/22 20:44 Dose: 1 tab Naltrexone HCl (Naltrexone Hcl 50 Mg Tablet) 50 mg PO DAILY [facility] Last Admin: 10/04/22 08:15 Dose: 50 mg Non-Formulary Medication (Cholecalciferol (Vitamin D3)) 50,000 units PO Tony [facility] Olanzapine (Olanzapine 5 Mg Tablet) 5 mg PO Q4H PRN PRN Reason: Psychosis Last Admin: 10/01/22 22:10 Dose: 5 mg Trazodone HCl (Trazodone Hcl 100 Mg Tablet) 100 mg PO BEDTIME [facility] Last Admin: 10/03/22 20:44 Dose: 100 mg Trazodone HCl (Trazodone Hcl 25 Mg Halftab) 25 mg PO BEDTIME PRN PRN Reason: Insomnia Last Admin: 10/03/22 22:14 Dose: 25 mg Verapamil HCl (Verapamil Hcl Sr 180 Mg Tablet.Er) 360 mg PO DAILY [facility]; Protocol Last Admin: 10/04/22 08:15 Dose: 360 mg Allergies Allergies Allergy/AdvReac Type Severity Reaction Status Date / Time No Known Allergies Allergy Verified 09/27/22 22:37 Assessment & Plan Assessment & Plan (1) Major depressive disorder: Status: Acute Code(s): F32.9 - Major depressive disorder, single episode, unspecified (2) Alcohol use disorder: Status: Acute Code(s): F10.90 - Alcohol use, unspecified, uncomplicated Plan The patient is an elderly male with a prior history of increased misuse of alcohol for the last year after that that of his , admitted initially at another hospital for suicidal ideation with a plan to overdose of prescription medications. Currently, he presents with depressive symptoms with suicidal ideation but he is able to contract for safety in the facility. Plan 1. Gather collateral information. 2. 50 minute check. 3. Regular blood work. 4. Hospitalist consult for medical clearance. 5. Remeron 7.5 mg p.o. q.h.s. to target depression. 6. We will consider the use of naltrexone if he presents with cravings. 7. Family meeting to gather more information 8. Vitamin B12, folate and multivitamins today. 9. MRI within normal limits 10. Naltrexone 50 mg p.o. daily Reason for contiued inpatient stay Substantial Risk for: inability to function, rapid decompensation and med/psych decompensation Time Spent With Patient Time: Total time managing care of this patient today ___20_ minutes.
[2022-10-04 18:00] VITALS: BP 138/60; PULSE 80; RESP 18; TEMP 36.7; O2SAT 96
[2022-10-04] MEDS: Multivitamin TABLET 1 TAB PO (20:50)
[2022-10-04] MEDS: Melatonin 3 MG TABLET 6 MG PO (20:50)
[2022-10-04] MEDS: traZODone HCL 100 MG TABLET PO (20:50)
[2022-10-04] MEDS: Mirtazapine 30 MG TABLET PO (20:50)
[2022-10-04] MEDS: traZODone HCL 25 MG HALFTAB PO (23:23)
[2022-10-04] MEDS: hydrOXYzine HCL 25 MG TABLET PO (23:23)
[2022-10-05 06:00] VITALS: BP 154/72; PULSE 107; RESP 18; TEMP 36.6; O2SAT 97
[2022-10-05 07:00] VITALS: BMI 22.4
[2022-10-05] MEDS: Folic Acid 1 MG TABLET PO (09:04)
[2022-10-05] MEDS: Naltrexone HCl 50 MG TABLET PO (09:04)
[2022-10-05] MEDS: Cyanocobalamin (Vitamin B-12) 100 MCG TABLET PO (09:04)
[2022-10-05] MEDS: Atorvastatin Calcium 40 MG TABLET PO (09:04)
[2022-10-05] MEDS: lisinopriL 20 MG TABLET PO (09:04)
[2022-10-05] MEDS: VerapamiL HCL SR 180 MG TABLET.ER 360 MG PO (09:04)
[2022-10-05] MEDS: Metoprolol Succinate ER 25 MG TAB.ER.24H PO (09:04)
[2022-10-05] MEDS: Apixaban 5 MG TABLET PO ×2 (09:04→20:16)
[2022-10-05] MEDS: Fenofibrate 160 MG TABLET PO (09:04)
[2022-10-05] MEDS: Acetaminophen 325 MG TABLET 650 MG PO (13:56)
--- NOTE | 2022-10-05 15:20 | P.PNPSI_ITS ---
Subjective Subjective Date of Service: 10/05/22 Reason For Visit: Major Depressive Disorder Recurrent Episode Subjective Notes: Conditional Voluntary Interim History: The nursing staff reported the patient had been compliant with treatment, he has made to groups and he has been visible in the unit. He denies depression he denies alcohol cravings. Yesterday we did talk with his son regarding [place] [address] another alternatives of the patient becomes noncompliance. Today we did a referral to [facility] close to his home and we wrote a letter supporting that referral. On interview the patient denies new symptoms he is aware that he is going to be discharged tomorrow. Mental Status Exam Mental Status Exam Patient Appearance: Well Grooomed and Appropriate Patient Orientation: Person and Situation Level of Consciousness: Awake and Appropriate Patient Behavior: Guarded Mood Description: Calm Affect Description: Constricted Patient Cognition Impaired: Yes Ability to Follow Directions: Good Speech Pattern: Clear Hallucinations: None Delusions: Not Present Thought Process: Distracted Thought Content: positive for [place] and positive for Linear Judgement: Fair Diagnostics Vital Signs (24Hr): Vital Signs - 24 hr 10/04/22 18:00 10/05/22 06:00 Temperature 98.1 F 97.9 F Pulse Rate 80 107 H Respiratory Rate 18 18 Blood Pressure 138/60 154/72 H Pulse Oximetry 96 97 Oxygen Delivery Method Room Air Room Air BMI result Body Mass Index 22.4 Labs 09/30/22 06:03 09/28/22 07:41 Imaging Radiology Impressions: ITS Impressions Brain MRI 09/29/22 13:00 IMPRESSION: No acute infarct, mass lesion, intracranial hemorrhage, or evidence of hydrocephalus. No imaging findings of Wernicke's encephalopathy. Medications Medications Current Medications Acetaminophen (Acetaminophen 325 Mg Tablet) 650 mg PO Q6H PRN PRN Reason: Headache/Pain Mild Scale (1-3) Last Admin: 10/05/22 13:56 Dose: 650 mg Al Hydroxide/Mg Hydroxide (Magnesium Hydrox/Alum Hydrox 30 Ml Oral.Susp) 30 ml PO Q6H PRN PRN Reason: Heartburn/Nausea Albuterol Sulfate (Albuterol Sulfate 90 Mcg 8 Gm Inhaler) 2 puff INHALE RQ4H PRN PRN Reason: wheeze Apixaban (Apixaban 5 Mg Tablet) 5 mg PO BID [facility] Last Admin: 10/05/22 09:04 Dose: 5 mg Atorvastatin Calcium (Atorvastatin Calcium 40 Mg Tablet) 40 mg PO DAILY [facility] Last Admin: 10/05/22 09:04 Dose: 40 mg Cyanocobalamin (Cyanocobalamin (Vitamin B-12) 100 Mcg Tablet) 100 mcg PO DAILY [facility] Last Admin: 10/05/22 09:04 Dose: 100 mcg Docusate Sodium (Docusate Sodium 100 Mg Capsule) 100 mg PO BID PRN PRN Reason: Constipation Fenofibrate (Fenofibrate 160 Mg Tablet) 160 mg PO DAILY [facility] Last Admin: 10/05/22 09:04 Dose: 160 mg Folic Acid (Folic Acid 1 Mg Tablet) 1 mg PO DAILY [facility] Last Admin: 10/05/22 09:04 Dose: 1 mg Hydroxyzine HCl (Hydroxyzine Hcl 25 Mg Tablet) 25 mg PO Q6H PRN PRN Reason: Anxiety Last Admin: 10/04/22 23:23 Dose: 25 mg Lisinopril (Lisinopril 20 Mg Tablet) 20 mg PO DAILY [facility]; Protocol Last Admin: 10/05/22 09:04 Dose: 20 mg Lorazepam (Lorazepam 0.5 Mg Tablet) 0.5 mg PO Q6H PRN PRN Reason: anxiety Last Admin: 10/04/22 20:50 Dose: 0.5 mg Magnesium Hydroxide (Milk Of Magnesia 30 Ml Oral.Susp) 30 ml PO DAILY PRN PRN Reason: Constipation Melatonin (Melatonin 3 Mg Tablet) 6 mg PO BEDTIME [facility] Last Admin: 10/04/22 20:50 Dose: 6 mg Metoprolol Succinate (Metoprolol Succinate Er 25 Mg Tab.Er.24h) 25 mg PO DAILY [facility]; Protocol Last Admin: 10/05/22 09:04 Dose: 25 mg Mirtazapine (Mirtazapine 30 Mg Tablet) 30 mg PO BEDTIME [facility] Last Admin: 10/04/22 20:50 Dose: 30 mg Multivitamins/Vitamin C (Multivitamin Tablet) 1 tab PO BEDTIME [facility] Last Admin: 10/04/22 20:50 Dose: 1 tab Naltrexone HCl (Naltrexone Hcl 50 Mg Tablet) 50 mg PO DAILY [facility] Last Admin: 10/05/22 09:04 Dose: 50 mg Non-Formulary Medication (Cholecalciferol (Vitamin D3)) 50,000 units PO Tony [facility] Olanzapine (Olanzapine 5 Mg Tablet) 5 mg PO Q4H PRN PRN Reason: Psychosis Last Admin: 10/01/22 22:10 Dose: 5 mg Trazodone HCl (Trazodone Hcl 100 Mg Tablet) 100 mg PO BEDTIME [facility] Last Admin: 10/04/22 20:50 Dose: 100 mg Trazodone HCl (Trazodone Hcl 25 Mg Halftab) 25 mg PO BEDTIME PRN PRN Reason: Insomnia Last Admin: 10/04/22 23:23 Dose: 25 mg Verapamil HCl (Verapamil Hcl Sr 180 Mg Tablet.Er) 360 mg PO DAILY [facility]; Protocol Last Admin: 10/05/22 09:04 Dose: 360 mg Allergies Allergies Allergy/AdvReac Type Severity Reaction Status Date / Time No Known Allergies Allergy Verified 09/27/22 22:37 Assessment & Plan Assessment & Plan (1) Major depressive disorder: Status: Acute Code(s): F32.9 - Major depressive disorder, single episode, unspecified (2) Alcohol use disorder: Status: Acute Code(s): F10.90 - Alcohol use, unspecified, uncomplicated Plan The patient is an elderly male with a prior history of increased misuse of alcohol for the last year after that that of his , admitted initially at another hospital for suicidal ideation with a plan to overdose of prescription medications. Currently, he presents with depressive symptoms with suicidal ideation but he is able to contract for safety in the facility. Plan 1. Gather collateral information. 2. 50 minute check. 3. Regular blood work. 4. Hospitalist consult for medical clearance. 5. Remeron 7.5 mg p.o. q.h.s. to target depression. 6. We will consider the use of naltrexone if he presents with cravings. 7. Family meeting to gather more information 8. Vitamin B12, folate and multivitamins today. 9. MRI within normal limits 10. Naltrexone 50 mg p.o. daily. 11. Discharge tomorrow 10/06 Reason for contiued inpatient stay Substantial Risk for: inability to function, rapid decompensation and med/psych decompensation Time Spent With Patient Time: Total time managing care of this patient today __20__ minutes.
[2022-10-05 18:00] VITALS: BP 124/57; PULSE 89; RESP 18; TEMP 36.1; O2SAT 100
[2022-10-05] MEDS: Multivitamin TABLET 1 TAB PO (20:16)
[2022-10-05] MEDS: Mirtazapine 30 MG TABLET PO (20:16)
[2022-10-05] MEDS: traZODone HCL 100 MG TABLET PO (20:16)
[2022-10-05] MEDS: Melatonin 3 MG TABLET 6 MG PO (20:16)
[2022-10-05] MEDS: traZODone HCL 25 MG HALFTAB PO (22:25)
[2022-10-05] MEDS: LORazepam 0.5 MG TABLET PO (22:25)
[2022-10-06] MEDS: traZODone HCL 25 MG HALFTAB PO (00:08)
[2022-10-06] MEDS: hydrOXYzine HCL 25 MG TABLET PO (00:08)
[2022-10-06 07:30] VITALS: BP 135/70; PULSE 82; RESP 16; TEMP 36.8; O2SAT 95
[2022-10-06] MEDS: Metoprolol Succinate ER 25 MG TAB.ER.24H PO (08:15)
[2022-10-06] MEDS: Atorvastatin Calcium 40 MG TABLET PO (08:15)
[2022-10-06] MEDS: Fenofibrate 160 MG TABLET PO (08:15)
[2022-10-06] MEDS: Cyanocobalamin (Vitamin B-12) 100 MCG TABLET PO (08:16)
[2022-10-06] MEDS: Folic Acid 1 MG TABLET PO (08:16)
[2022-10-06] MEDS: Naltrexone HCl 50 MG TABLET PO (08:16)
[2022-10-06] MEDS: lisinopriL 20 MG TABLET PO (08:16)
[2022-10-06] MEDS: Apixaban 5 MG TABLET PO (08:16)
[2022-10-06] MEDS: VerapamiL HCL SR 180 MG TABLET.ER 360 MG PO (08:16)
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
== END 2022-10-06 11:20 | disposition home or self-care (01) | DRG 881 ==
PROVIDERS: Clinical Nurse Specialist Psychiatric/Mental Health, Adult; Student in an Organized Health Care Education/Training Program; Admitting Provider Psychiatry & Neurology Psychiatry; Visit Provider Psychiatry & Neurology Psychiatry
DX: F32.9 Major depressive disorder, single episode, unspecified (principal); R45.851 Suicidal ideations; E78.5 Hyperlipidemia, unspecified; F10.10 Alcohol abuse, uncomplicated; I10 Essential (primary) hypertension; I48.0 Paroxysmal atrial fibrillation; R94.31 Abnormal electrocardiogram [ECG] [EKG]; Z79.01 Long term (current) use of anticoagulants; Z79.899 Other long term (current) drug therapy
CPT/HCPCS: 36415; 70551; 80053; 80061; 80076; 82607; 82746; 82977; 83036; 83540; 84439; 84443; 85025; 93005